=== PATIENT | male | born 1990 | race Two or more races ===

== ENCOUNTER 2019-05-07 23:29 | Emergency (ER) | payer OTHER ==
[~2019-05-07] VITALS: Ht 180.3 cm; Wt 158.8 kg
[2019-05-07 23:37] VITALS: Ht 180.3 cm; Wt 158.8 kg
[2019-05-08 00:52] VITALS: BP 130/98
== END 2019-05-08 00:52 | disposition other institution (70) ==
LOC: ED 23:29
DX: Z02.89 Encounter for other administrative examinations (principal)
CPT/HCPCS: Q0162